=== PATIENT | female | born 1980 | race Caucasian/White ===

== ENCOUNTER 2022-02-11 10:47 | Emergency (ER) | payer OTHER, MEDICAID, SELFPAY ==
[2022-02-11 11:02] VITALS: BP 152/82; PULSE 80; RESP 18; TEMP 36.8; O2SAT 99; BMI 41.3
--- NOTE | 2022-02-11 11:43 | ED.EXTPRO ---
HPI - Extremity Problem General Chief complaint: Extremity Problem,Nontraumatic Stated complaint: mass on RT thigh t-14 Time Seen by Provider: 02/11/22 10:54 Source: patient Mode of arrival: Ambulatory History of Present Illness HPI Narrative: Patient is a 41-year-old female history of hypothyroid hypertension presenting today with swelling on her right thigh. She is not sure how long it has been there she feels like it is getting worse she noticed it with her pants. It is not painful red she denies any fever. She is feels like it is getting bigger and is worried about what it is. She denies any chest pain cough shortness of breath nausea vomiting or other Review of Systems Review of Systems Narrative: GENERAL: Denies chills,fever HEENT: Denies throat pain RESPIRATORY: Denies dyspnea, cough, wheezing CARDIOVASCULAR: Denies chest pain, palpitations GASTROINTESTINAL: Denies nausea, vomiting MUSCULOSKELETAL: Denies extremity pain, injury SKIN: No rash, no laceration, no pruritus NEUROLOGIC: Denies weakness, dizziness, headache, numbness 8 point review of systems is negative except for those stated above and HPI Patient History Social History Smoking Status: Current every day smoker Smoking Status: Current every day smoker tobacco type: cigarettes alcohol intake frequency: 0-2 drinks per day Substance Use Type: does not use Exam Initial Vital Signs Initial Vital Signs: Vital Signs Temperature 98.2 F 02/11/22 11:02 Pulse Rate 80 02/11/22 11:02 Respiratory Rate 18 02/11/22 11:02 Blood Pressure 152/82 H 02/11/22 11:02 Pulse Oximetry 99 02/11/22 11:02 Oxygen Delivery Method 02/11/22 11:02 GENERAL: Well-appearing, well-nourished and in no acute distress. CARDIOVASCULAR: peripheral pulses in tact, cap refill <2 sec RESPIRATORY: No respiratory distress, speaks in full sentences without difficulty EXTREMITIES: Normal range of motion, no clubbing or edema. Neurovascularly intact NEUROLOGICAL: Cranial nerves II through XII grossly intact. Normal gait and speech. SKIN: Right lateral thigh there is swelling probable lipoma it is not erythematous no fluctuation Course Vital Signs Vital signs: Vital Signs - 8 hr 02/11/22 11:02 Temperature 98.2 F Pulse Rate 80 Respiratory Rate 18 Blood Pressure 152/82 H Pulse Oximetry 99 Oxygen Delivery Method Room Air MDM - Extremity (Nontraumatic) MDM Narrative Medical decision making narrative: Patient presents with ongoing swelling in her right lateral thigh. It is non erythematous it is unknown how long it has been there. It is nonpainful. Probable lipoma. She is ambulatory without any difficulty. There is no sign of abscess or infection. At this time I recommend further outpatient workup. Discharge Plan Departure Patient Disposition: Home Clinical Impression: Lipoma Instructions: Lipoma, DI for Lipoma Removal Activity Restrictions/Additional Instructions: At this time that you probably have a fatty mass. It is called a lipoma. This is benign and noncancerous. I still recommend that you see your primary care provider for further workup. However today it is not emergent. Please see your primary care provider in the next 2-3 days at least call for an appointment Continue all medications as previously prescribed Please monitor for any worsening symptoms such as redness swelling pain fever, if these present please return to the ED for further evaluation Referrals: Sandy Howe FNP-C [Primary Care Provider] - Visit Report Forms: Patient Portal/API
== END 2022-02-11 11:54 | disposition home or self-care (01) ==
PROVIDERS: Emergency Provider Emergency Medicine; PCP Registered Nurse
DX: D17.23 Benign lipomatous neoplasm of skin and subcutaneous tissue of right leg (principal)
CPT/HCPCS: 99281

== ENCOUNTER 2022-03-10 20:05 | Emergency (ER) | payer OTHER, MEDICAID, SELFPAY ==
[2022-03-10 20:45] VITALS: BP 143/86; PULSE 87; RESP 20; TEMP 36.4; O2SAT 97; BMI 41.5
== END 2022-03-11 01:20 | disposition left against medical advice (07) ==
PROVIDERS: Emergency Provider Emergency Medicine; PCP Registered Nurse
CPT/HCPCS: 99281